=== PATIENT | male | born 1985 | race Caucasian/White ===

== ENCOUNTER 2020-01-26 17:18 | Emergency (ER) | payer BC ==
[2020-01-26] MEDS ORDERED: LIDOCAINE 1% 10 ML VIAL INJ ONE (17:21)
[2020-01-26] MEDS ORDERED: TETANUS,DIPHTHERIA,PERTUSSIS 1 EA SYG IM ONE (17:22)
[2020-01-26 17:36] VITALS: O2SAT 96
--- NOTE | 2020-01-26 17:38 | ED.PDOC ---
History of Present Illness - General Chief Complaint: General Stated Complaint: Fish hook left arm Time Seen by Provider: 01/26/20 17:21 Source: patient, RN notes reviewed, Vital Signs reviewed Additional Information: 34yo M no PMH with reported fish hook in arm. Reports was fishing [employer], and had hook lodged in posterior left shoulder. Denies other injury, pain, or other complaint at this time. Reports in need of tetanus as well. - History of Present Illness Allergies/Adverse Reactions: Allergies Tramadol [From [facility]] Allergy (Verified 01/26/20 17:37) Home Medications: Ambulatory Orders Cephalexin Monohydrate [Keflex] 1,000 mg PO BID 7 Days #28 cap 01/26/20 Review of Systems - Review of Systems Skin: States: other - fish hook left shoulder All other Systems: Reviewed and Negative Past Medical History (General) - Patient Medical History Hx Seizures: No Hx Stroke: No Hx Dementia: No Hx Asthma: No Hx of COPD: No Hx Cardiac Disorders: No Hx Congestive Heart Failure: No Hx Pacemaker: No Hx Hypertension: No Hx Thyroid Disease: No Hx Diabetes: No Hx Gastroesophageal Reflux: No Hx Renal Disease: No Hx Cancer: No Hx of HIV: No Hx Hepatitis C: No Hx MRSA: No Surgical History: no surgical history - Vaccination History Hx Tetanus, Diphtheria Vaccination: No Hx Influenza Vaccination: No - Social History Hx Tobacco Use: No Hx Alcohol Use: Yes Family Medical History - Family History Mother Family History: Unknown Living Status: Unknown Physical Exam - Physical Exam General Appearance: Alert, Comfortable, Well Developed, Well Nourished Ears, Nose, Throat: hearing grossly normal Neck: non-tender, full range of motion, supple Respiratory: chest non-tender, lungs clear, normal breath sounds Cardiovascular/Chest: normal peripheral pulses, regular rate, rhythm Peripheral Pulses: radial,left: 2+ Extremity: normal range of motion, non-tender, other - LUE: 2+ radial/ulnar pulses, normal sensation, FROM, fish hook with two barbs penetrating skin posterior left shoulder with no hemorrhage 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 Two barbs noted, palpable in subcutaneous tissue. Barbs were completely imbedded with ends of hooks palpable immediately below skin again. After verbal consent, lidocaine used and barbs pushed through skin, trimmed, and hook completely removed. No retained foreign body noted. Nursing irrigated skin, tetanus updated, and antibiotics prescribed. Discussed wound care, signs of infection, and need for follow-up. ED warnings given. 01/26/20 18:11 Patient and I wore masks for duration of encounter, and I maintained a distance of 6 feet except for those brief times need for physical exam. Institutional screening protocol for coronavirus performed in triage. Vance Shirley MD #[id number] Procedures - Foreign Body Removal Foreign Body Removal: fish hook Foreign Body Physician Comment:: lidocaine used, 2 barbs pushed through, trimmed, and completely removed Departure - Departure Clinical Impression: Fish hook injury of left upper arm Time of Disposition: 18:07 Disposition: Discharge to Home or Self Care Condition: Good Departure Forms: ED Discharge - Pt. Copy, Patient Portal Self Enrollment Instructions: Foreign Body in Skin (DC) Diet: resume usual diet Referrals: doctor, your [Other] - 1-5 Days Prescriptions: Cephalexin Monohydrate [Keflex] 1,000 mg PO BID 7 Days #28 cap Home Medications: Ambulatory Orders Cephalexin Monohydrate [Keflex] 1,000 mg PO BID 7 Days #28 cap 01/26/20 Additional Instructions: You were seen in the [facility] Emergency Department today. Please fill and take the medications as prescribed (if any) and if you were prescribed antibiotics, please complete the full course. You will need further evaluation on an out patient basis. You must follow up with the listed locations and within the time frames indicated in your discharge paperwork (including your PCP in 3-5 days). Failure to follow up with any studies or doctor visits within the timeframe mentioned could result in poor outcome. Your examination today in the ED did not reveal a new or old problem that required immediate surgery or admission to the hospital. However, you should return to the ED if you are not improving as instructed (especially within the first 6 to 24 hours). This may include things such as uncontrolled vomiting, shortness of breath, fever, bleeding, or severe pain in a body part. You should return for any new or worsening emergency symptoms such as chest pain, severe headache, confusion, or severe abdominal pain. Finally, return to the emergency department if you have any concerns not mentioned above that are concerning to you or if you are unable to follow up as instructed above. Thank you for coming to [facility]. It was our pleasure to serve you today and we thank you for your visit.
[2020-01-26] MEDS ORDERED: NEOMYCIN-BACITRACIN-POLYMYXIN 0.9 GM UD TOP ONE (17:48)
[2020-01-26] MEDS ORDERED: CHLORHEXIDINE GLUCONATE 4 % 15 ML UD TOP ONE (17:48)
[2020-01-26 18:18] VITALS: BP 127/89; TEMP 98.7
== END 2020-01-26 18:17 | disposition home or self-care (01) ==
LOC: ER 17:18
DX: S41.142A Puncture wound with foreign body of left upper arm, initial encounter (principal); W26.8XXA Contact with other sharp object(s), not elsewhere classified, initial encounter; Y92.9 Unspecified place or not applicable